=== PATIENT | male | born 1980 | race Caucasian/White ===

== ENCOUNTER → 2016-06-08 | Outpatient (CLI) | payer OTHER ==
--- NOTE | 2016-06-10 09:35 | SLEEPCENT ---
DATE OF STUDY: 06/08/2016 ORDERING PROVIDER: Lalita Toscano at the [facility] Nocturnal polysomnography was performed for evaluation of sleep physiology. 7 hours and 14 minutes of data were reviewed. There were 311 minutes of sleep identified. Sleep latency was quite prolonged at 71 minutes. Rapid eye movement (REM) latency was short at 49 minutes. Sleep architecture was fair with some fragmentation and brief periods of awake. 4-5 REM periods were appreciated. Overall sleep efficiency was 72%. The patient's electrocardiogram (EKG) showed a sinus rhythm with an average heart rate of 67 beats per minute. Heart rate ranged 50-80 beats per minute. Electroencephalogram (EEG) showed fairly normal waveforms awake and sleep. There were 39 respiratory events identified of 10 seconds in duration or greater for an apnea-hypopnea index at 7.5. The events were not exclusive to sleep stage. They were more frequent in the supine posture. Significant snoring was also noted. Respiratory-related arousals occurred 4.2 times per hour. No significant oxygen desaturations were seen. There was some limb activity, but limb movement arousal index was within reasonably normal range at 3.5. IMPRESSION: Mild positional obstructive sleep apnea syndrome (G47.33). Apnea-hypopnea index 7.5. RECOMMENDATION: Sleep position retraining for avoidance of the supine posture may be sufficient. If the patient's sleep symptoms persist, referral back to the sleep disorder center for pressure therapy would be reasonable. In the interim, alcohol and sedative avoidance should be practiced, as sleep agent sedatives may exaggerate the patient's apnea.
== END ==
LOC: M SLEEP 20:30
PROVIDERS: ATTEND Internal Medicine
DX: G47.33 Obstructive sleep apnea (adult) (pediatric) (principal)

== ENCOUNTER 2018-07-10 00:49 | Emergency (ER) | payer OTHER ==
[2018-07-10 01:05] VITALS: BP 140/82
== END 2018-07-10 01:34 | disposition home or self-care (01) ==
LOC: M ED 00:49
DX: F41.1 Generalized anxiety disorder (principal); F43.10 Post-traumatic stress disorder, unspecified; F17.200 Nicotine dependence, unspecified, uncomplicated

== ENCOUNTER 2018-07-24 03:42 | Emergency (ER) | payer OTHER ==
[~2018-07-24] VITALS: Ht 175.3 cm; Wt 110.0 kg
[2018-07-24] MEDS ORDERED: WELLTAB38 PO (03:50)
[2018-07-24] MEDS ORDERED: ATIV1TAB10 PO (03:50)
[2018-07-24 04:11] LABS: BASO % 0.4 % (0.0-1.0); EOS # 0.3 10^3/uL (0.0-0.50); EOS % 3.1 % (0.0-3.0); HEMATOCRIT 48.3 % (42.0-52.0); HEMOGLOBIN 16.7 g/dl (13.5-17.5); LYMPH # 2.4 10^3/uL (1.5-4.5); LYMPH % 28.3 % (24.0-44.0); MEAN CORPUSCULAR HEMOGLOBIN 31.9 pg (27.0-33.0); MEAN CORPUSCULAR HGB CONC 34.6 g/dl (32.0-36.5); MEAN CORPUSCULAR VOLUME 92.2 fl (80.0-96.0); MONO # 0.5 10^3/uL (0.0-0.8); MONO % 6.4 % (0.0-5.0); NEUTROPHILS # 5.2 10^3/uL (1.8-7.7); NEUTROPHILS % 61.4 % (36.0-66.0); PLATELET COUNT, AUTOMATED 268 10^3/uL (150-450); RED BLOOD COUNT 5.24 10^6/uL (4.30-6.10); WHITE BLOOD COUNT 8.5 10^3/uL (4.0-10.0)
[2018-07-24 04:36] LABS: AMPHETAMINES LEVEL URINE NEGATIVE (NEGATIVE); BARBITURATES URINE NEGATIVE (NEGATIVE); BENZODIAZEPINES URINE NEGATIVE (NEGATIVE); CANNABINOIDS URINE NEGATIVE (NEGATIVE); COCAINE METABOLITE URINE NEGATIVE (NEGATIVE); METHADONE URINE NEGATIVE (NEGATIVE); OPIATES URINE NEGATIVE (NEGATIVE); PHENCYCLIDINE URINE NEGATIVE (NEGATIVE)
[2018-07-24 04:44] LABS: ACETAMINOPHEN LEVEL < 2.0 UG/ML (10.0-30.0); ALBUMIN 3.9 GM/DL (3.2-5.2); ALT/SGPT 42 U/L (12-78); BILIRUBIN,DIRECT 0.1 MG/DL (0.0-0.2); BILIRUBIN,TOTAL 0.3 MG/DL (0.2-1.0); BLOOD UREA NITROGEN 6 MG/DL (7-18); CALCIUM LEVEL 8.2 MG/DL (8.5-10.1); CARBON DIOXIDE LEVEL 30 MEQ/L (21-32); CHLORIDE LEVEL 110 MEQ/L (98-107); CPK CREATINE PHOSPHOKINASE 161 U/L (39-308); CREATININE FOR GFR 0.84 MG/DL (0.70-1.30); ETHYL ALCOHOL (ETHANOL) 0.232 % (0.000-0.010); GLOMERULAR FILTRATION RATE > 60.0 (>60); GLUCOSE, FASTING 92 MG/DL (70-100); POTASSIUM SERUM 3.9 MEQ/L (3.5-5.1); SODIUM LEVEL 144 MEQ/L (136-145); TOTAL PROTEIN 7.1 GM/DL (6.4-8.2)
--- NOTE | 2018-07-24 07:16 | ECGEPIP ---
[facility] - ED Test Date: 2018-07-24 Pat Name: DULCE BAI Department: Room: - Gender: Male Manager Front: : 1980 Requested By: GOLDIE Cano Order Number: [id number] Reading MD: Alphonso Dubose Measurements Intervals [place] Rate: 98 P: 39 [place]: 156 QRS: 12 QRSD: 93 T: 62 QT: 345 QTc: 442 Interpretive Statements SINUS RHYTHM NONSPECIFIC T-WAVE ABNORMALITY SIMILAR TO 05/11/15 Electronically Signed on 07-24-2018 7:16:29 EDT by Alphonso Dubose
[2018-07-24 14:01] VITALS: BP 160/92
== END 2018-07-24 14:02 | disposition home or self-care (01) ==
LOC: M ED 03:42
DX: F10.10 Alcohol abuse, uncomplicated (principal); T42.72XA Poisoning by unspecified antiepileptic and sedative-hypnotic drugs, intentional self-harm, initial encounter; X58.XXXA Exposure to other specified factors, initial encounter; Y92.89 Other specified places as the place of occurrence of the external cause; F41.1 Generalized anxiety disorder; F43.10 Post-traumatic stress disorder, unspecified; Z79.899 Other long term (current) drug therapy; F17.210 Nicotine dependence, cigarettes, uncomplicated
CPT/HCPCS: 36415; 80048; 80076; 80307; 82550; 84443; 85025; 93005; 93041; 94760; 99285; G0480

== ENCOUNTER 2018-08-16 05:29 | Emergency (ER) | payer OTHER ==
[~2018-08-16] VITALS: Ht 175.3 cm; Wt 101.4 kg
[~2018-08-16 05:29] MED LIST: ATIV1TAB10 PO; WELLTAB38 PO
[2018-08-16 06:59] LABS: HEMOGLOBIN 16.4 g/dl (13.5-17.5); MEAN CORPUSCULAR HEMOGLOBIN 31.3 pg (27.0-33.0); MEAN CORPUSCULAR HGB CONC 34.9 g/dl (32.0-36.5); MEAN CORPUSCULAR VOLUME 89.7 fl (80.0-96.0); PLATELET COUNT, AUTOMATED 289 10^3/uL (150-450); RED BLOOD COUNT 5.24 10^6/uL (4.30-6.10); WHITE BLOOD COUNT 8.6 10^3/uL (4.0-10.0)
[2018-08-16 07:21] LABS: AMPHETAMINES LEVEL URINE NEGATIVE (NEGATIVE); BARBITURATES URINE NEGATIVE (NEGATIVE); BENZODIAZEPINES URINE NEGATIVE (NEGATIVE); CANNABINOIDS URINE NEGATIVE (NEGATIVE); COCAINE METABOLITE URINE NEGATIVE (NEGATIVE); METHADONE URINE NEGATIVE (NEGATIVE); OPIATES URINE NEGATIVE (NEGATIVE); PHENCYCLIDINE URINE NEGATIVE (NEGATIVE)
[2018-08-16 07:34] LABS: ACETAMINOPHEN LEVEL < 2.0 UG/ML (10.0-30.0); ALBUMIN 3.9 GM/DL (3.2-5.2); ALT/SGPT 43 U/L (12-78); BILIRUBIN,DIRECT 0.1 MG/DL (0.0-0.2); BILIRUBIN,TOTAL 0.3 MG/DL (0.2-1.0); BLOOD UREA NITROGEN 8 MG/DL (7-18); CALCIUM LEVEL 8.4 MG/DL (8.5-10.1); CARBON DIOXIDE LEVEL 26 MEQ/L (21-32); CHLORIDE LEVEL 110 MEQ/L (98-107); CREATININE FOR GFR 0.84 MG/DL (0.70-1.30); ETHYL ALCOHOL (ETHANOL) 0.179 % (0.000-0.010); GLOMERULAR FILTRATION RATE > 60.0 (>60); GLUCOSE, FASTING 95 MG/DL (70-100); POTASSIUM SERUM 4.1 MEQ/L (3.5-5.1); SALICYLATE LEVEL 3.2 MG/DL (5.0-30.0); SODIUM LEVEL 144 MEQ/L (136-145); TOTAL PROTEIN 7.2 GM/DL (6.4-8.2)
[2018-08-16] MEDS ORDERED: NICOTINE 21MG/24HR 1 EA TRANSDERMAL TD ONE (08:00)
[2018-08-16 14:36] VITALS: BP 137/80
--- NOTE | 2018-08-16 15:13 | MHCRPDOC ---
[facility] Consultation Consultation DATE OF CONSULTATION: 08/16/18 Neville Menendez Male Date of : N/A Date of Service: 08/16/2018 Chief Complaint Presentation to ER for suicidal statement while intoxicated. History of Present Illness Patient, a 38-year-old man with a history of PTSD after serving a significant amount of time in the , presents in an intoxicated state with alcohol where he had reportedly stated some passive suicidal ideation after he had been allowed to become more sober. He redacted the ideation. He reported that he has no history of suicide behavior [facility]. He described that when he drinks he generally remembers various traumatic events and at times will endorse ideation, but he reported he had no intention of acting on it. Review Of Systems Depression: The patient denies any episodes of unprovoked depressed mood associated with neurovegetative symptoms lasting longer than 2 weeks with symptoms present nearly everyday. Anxiety: The patient denies any excessive worry associated with physical symptoms. They deny any experience of discreet panic in the past. Linnea: The patient denies any episodes of euphoria/dysphoria associated with decreased need for sleep, hedonism, talkatively or impulsivity lasting longer than 5 days. Psychotic: The patient denies any experiences of auditory or visual hallucinations. They deny any episodes of paranoia or delusional thinking in the past Trauma: Patient admits to criterion A trauma with nightmares, intrusive thoughts, and avoidance behavior with negative cognition about the future. Borderline: The patient screens negative for borderline personality at this junction. Past Psychiatric History Patient reports no history of psychiatric admissions and is currently seeing Shannan Powell at the [facility] and following with a therapist as well in local [place] area. He was recently starred on Wellbutrin 150 mg extended release daily and PRN ativan that has been fairly helpful for his PTSD roughly 1 month ago. Denies any history of suicide attempts. Patient denies any ownership of weapons or guns. Allergies Please see below. Family Psychiatric History The patient denies/is unaware any history of mental health history including addictions and suicide. Social History Patient lives in the current area alone with his dog at this time. 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 Substance Abuse History Patient reports significant alcohol use that has brought him to the ER in the past, but denies consistent use or withdrawal symptoms. Denies tobacco use or illicit drug use at this time. Medical History Patient has no significant past medical history. Mental Status Examination General: Well dressed with good hygiene Speech: Spontaneous and fluid Thought processes: Linear and logical MSK: Smooth and coordinated gait, no signs of tremors or involuntary orofacial movements Thought content: Future orientated Abstract reasoning, and computation: Intact Description of associations: Intact Description of abnormal or psychotic thoughts: Denies any suicidal or homicidal ideation. Denies any auditory or visual hallucinations. Does not appear to be responding to internal stimuli. Does not appear to be endorsing any bizarre or paranoid ideation. Judgment: fair Insight: fair Orientation: Alert and orientated 3 Cognition: Grossly normal Recent and remote memory: Intact Attention span and concentration: Intact Fund of knowledge: Adequate Mood: "okay" Affect: Euthymic with a full range Diagnoses PTSD, chronic. Alcohol use disorder, mild. Assessment and Plan Patient, a 38-year-old man with history significant for PTSD but no significant in-patient admissions or suicide attempts, presents in an intoxicated state initially where he had endorsed suicidal thoughts and had been brought to the ER for evaluation. After he had become sober, he reported that he had no intention of acting on any suicidal thoughts and did not regularly entertain them either. Patient at this time is at his baseline level of risk, which is judged by this provider to be low. In my clinical opinion, the patient at this time does not meet criteria for involuntary in-patient admission and the patient was offered in-patient admission under a voluntary status, of which he politely declined. Patient is cleared from a psychiatric perspective at this time to return to his outpatient providers with strong endorsement to engage [facility]. Recommend additional services at the local [facility] for group therapy and continued case management. Time Spent 45 minutes. Vital Signs Vital Signs Date Time Temp Pulse Resp B/P (MAP) Pulse Ox O2 Delivery O2 Flow Rate FiO2 08/16/18 14:36 97.0 90 20 137/80 (99) 97 Room Air Laboratory Data 24H Labs Laboratory Tests 2 08/16/18 06:16: Urine Amphetamines Screen NEGATIVE, Urine Benzodiazepines Screen NEGATIVE, Urine Opiates Screen NEGATIVE, Urine Methadone Screen NEGATIVE, Urine Barbiturates Screen NEGATIVE, Urine Phencyclidine Screen NEGATIVE, Urine Cocaine Metabolite Screen NEGATIVE, Urine Cannabinoids Screen NEGATIVE 08/16/18 06:35: Nucleated Red Blood Cells % (auto) 0.0, Anion Gap 8, Glomerular Filtration Rate > 60.0, Calcium Level 8.4L, Aspartate Amino Transf (AST/SGOT) 37, Alanine Aminotransferase (ALT/SGPT) 43, Alkaline Phosphatase 125H, Total Bilirubin 0.3, Direct Bilirubin 0.1, Total Protein 7.2, Albumin 3.9, Albumin/Globulin Ratio 1.18, Thyroid Stimulating Hormone (TSH) 4.040H, Salicylates Level 3.2L, Acetaminophen Level < 2.0L, Ethyl Alcohol Level 0.179H Home Medications Scheduled Bupropion HCl (Wellbutrin Xl) 150 Mg Tab.er.24h, 150 MG PO DAILY, (Reported) Scheduled PRN Lorazepam (Ativan) 0.5 Mg Tablet, 0.5 MG PO BIDP PRN for anxiety, (Reported) Allergies Coded Allergies: No Known Allergies (Verified Allergy, Unknown, 07/10/18) KAELYN MARSHALL DO Aug 16, 2018 15:13
== END 2018-08-16 14:46 | disposition home or self-care (01) ==
LOC: M ED 05:29
DX: F32.9 Major depressive disorder, single episode, unspecified (principal); F41.9 Anxiety disorder, unspecified; F43.10 Post-traumatic stress disorder, unspecified; F17.210 Nicotine dependence, cigarettes, uncomplicated; F12.90 Cannabis use, unspecified, uncomplicated; F10.10 Alcohol abuse, uncomplicated; Z79.899 Other long term (current) drug therapy
CPT/HCPCS: 36415; 80048; 80076; 80307; 84443; 85027; 99284; G0480

== ENCOUNTER 2018-08-21 07:06 | Emergency (ER) | payer OTHER ==
[~2018-08-21] VITALS: Ht 175.3 cm; Wt 105.0 kg
[2018-08-21] MEDS: NS 1,000 ML IV SCH ×2 (07:33→14:13)
[2018-08-21 07:43] LABS: HEMATOCRIT 49.9 % (42.0-52.0); MEAN CORPUSCULAR HEMOGLOBIN 31.9 pg (27.0-33.0); MEAN CORPUSCULAR HGB CONC 35.1 g/dl (32.0-36.5); MEAN CORPUSCULAR VOLUME 90.9 fl (80.0-96.0); PLATELET COUNT, AUTOMATED 253 10^3/uL (150-450); RED BLOOD COUNT 5.49 10^6/uL (4.30-6.10); WHITE BLOOD COUNT 6.9 10^3/uL (4.0-10.0)
[2018-08-21 07:52] LABS: HEMOGLOBIN 17.5 g/dl (13.5-17.5)
[2018-08-21 08:20] LABS: ALBUMIN 3.9 GM/DL (3.2-5.2); ALT/SGPT 43 U/L (12-78); BILIRUBIN,DIRECT < 0.1 MG/DL (0.0-0.2); BILIRUBIN,TOTAL 0.2 MG/DL (0.2-1.0); BLOOD UREA NITROGEN 10 MG/DL (7-18); CALCIUM LEVEL 8.2 MG/DL (8.5-10.1); CARBON DIOXIDE LEVEL 24 MEQ/L (21-32); CHLORIDE LEVEL 107 MEQ/L (98-107); CPK CREATINE PHOSPHOKINASE 372 U/L (39-308); CREATININE FOR GFR 0.81 MG/DL (0.70-1.30); ETHYL ALCOHOL (ETHANOL) 0.098 % (0.000-0.010); GLOMERULAR FILTRATION RATE > 60.0 (>60); GLUCOSE, FASTING 104 MG/DL (70-100); POTASSIUM SERUM 4.2 MEQ/L (3.5-5.1); SALICYLATE LEVEL 2.6 MG/DL (5.0-30.0); SODIUM LEVEL 141 MEQ/L (136-145); TOTAL PROTEIN 7.1 GM/DL (6.4-8.2)
[2018-08-21 08:22] LABS: ACETAMINOPHEN LEVEL < 2.0 UG/ML (10.0-30.0)
[2018-08-21 10:29] LABS: AMPHETAMINES LEVEL URINE NEGATIVE (NEGATIVE); BARBITURATES URINE NEGATIVE (NEGATIVE); BENZODIAZEPINES URINE NEGATIVE (NEGATIVE); CANNABINOIDS URINE NEGATIVE (NEGATIVE); COCAINE METABOLITE URINE NEGATIVE (NEGATIVE); METHADONE URINE NEGATIVE (NEGATIVE); OPIATES URINE NEGATIVE (NEGATIVE); PHENCYCLIDINE URINE NEGATIVE (NEGATIVE)
[2018-08-21] MEDS ORDERED: buPROPion **XL** TABLET 150MG (WELLBUTRIN XL) PO ONE (11:00)
--- NOTE | 2018-08-21 14:53 | ED PDOC ---
Provider Note Neville Menendez Male Date of : N/A Date of Service: 08/21/2018 History of Present Illness Patient, a 38-year-old man with a history of PTSD after serving a significant amount of time in the , presents in an intoxicated state with alcohol where he had reportedly stated some passive suicidal ideation after he had been allowed to become more sober. He redacted the ideation. He reported that he has no history of suicide behavior and follows with the [place] at this time. He described that when he drinks he generally remembers various traumatic events and at times will endorse ideation, but he reported he had no intention of acting on it. Interval History Please refer to my previous ER H&P from roughly seven days ago. The patient presented again today after reportedly taking more of his Ativan than he's been prescribed. He had called the [place] Crisis [facility] reportedly after saying that he was upset about the loss of his recent resource and his friend had given him the number. He described that he did not have any suicidal thoughts and that due to him taking more of his Ativan than he should have, that this concerned the [place] [facility]. He was subsequently brought in for evaluation. The patient describes that he was drinking again and taking his Ativan roughly seven tablets, not all at once but in sequential which appears to be consistent with him misusing. The patient states now that he is sobered up. He has no symptoms of depression. No concerning ideation. His friend was consulted for collateral information where she relayed that no suicidal ideation was relayed during the conversation with the Crisis Line and that he is generally at his baseline at this time. Vital Signs Reviewed. Mental Status Examination General: Well dressed with good hygiene Speech: Spontaneous and fluid Thought processes: Linear and logical MSK: Smooth and coordinated gait, no signs of tremors or involuntary orofacial movements Thought content: Future orientated Abstract reasoning, and computation: Intact Description of associations: Intact Description of abnormal or psychotic thoughts: Denies any suicidal or homicidal ideation. Denies any auditory or visual hallucinations. Does not appear to be responding to internal stimuli. Does not appear to be endorsing any bizarre or paranoid ideation. Judgment: fair Insight: fair Orientation: Alert and orientated 3 Cognition: Grossly normal Recent and remote memory: Intact Attention span and concentration: Intact Fund of knowledge: Adequate Mood: "okay" Affect: Euthymic with a full range Diagnoses Alcohol use disorder, mild. Assessment and Plan The patient, a 38 year old man with a history of severe alcohol problems who is prescribed Ativan, appears to have been misusing it. He has returned to his baseline state. He has been seen a week prior. He did not overdose on any medication per the patient and collateral information clarified that the patient could have been considerably concerning if he had mentioned his overuse of his Ativan. However, the patient in my clinical opinion, has returned to his baseline level of risk for self-harm. He is well connected to his outpatient team, although, it was recommended he cease his Ativan use as this is contraindicated in alcohol use and recommended AA resources. The patient does not meet inpatient criteria at this time and is not interested in a voluntary admission. Time Spent 15 mins Thursday KAELYN MARSHALL DO Aug 21, 2018 14:53
[2018-08-21 16:14] VITALS: BP 153/75
--- NOTE | 2018-08-23 16:36 | ECGEPIP ---
[facility] - ED Test Date: 2018-08-21 Pat Name: DULCE BAI Department: Room: - Gender: Male Immigration Case Manager: VANITA : 1980 Requested By: EMILY MARTINES Order Number: [id number] Reading MD: Sd Waters Measurements Intervals [place] Rate: 107 P: 46 [place]: 154 QRS: 31 QRSD: 92 T: 53 QT: 331 QTc: 442 Interpretive Statements SINUS TACHYCARDIA Electronically Signed on 08-23-2018 16:35:53 EDT by Sd Waters
== END 2018-08-21 16:18 | disposition home or self-care (01) ==
LOC: M ED 07:06 → EDBD 07:06 → M ED 16:18
DX: F10.129 Alcohol abuse with intoxication, unspecified (principal); T42.4X1A Poisoning by benzodiazepines, accidental (unintentional), initial encounter; R00.0 Tachycardia, unspecified; F32.9 Major depressive disorder, single episode, unspecified; F41.9 Anxiety disorder, unspecified; F43.10 Post-traumatic stress disorder, unspecified; Z72.0 Tobacco use; F12.10 Cannabis abuse, uncomplicated; Z79.899 Other long term (current) drug therapy; Z88.8 Allergy status to other drugs, medicaments and biological substances
CPT/HCPCS: 80048; 80076; 80307; 82550; 84443; 85027; 93005; 93041; 94760; 96360; 96361; 99285; G0480

== ENCOUNTER 2021-02-22 21:59 | Emergency (ER) | payer OTHER ==
[~2021-02-22] VITALS: Ht 170.2 cm; Wt 118.2 kg
[2021-02-23 01:44] LABS: BASO % 0.5 % (0.0-1.0); EOS # 0.4 10^3/uL (0.0-0.5); EOS % 4.2 % (0.0-3.0); HEMATOCRIT 49.9 % (42.0-52.0); LYMPH # 2.4 10^3/uL (1.5-5.0); MEAN CORPUSCULAR HEMOGLOBIN 30.7 pg (27.0-33.0); MEAN CORPUSCULAR HGB CONC 34.1 g/dl (32.0-36.5); MEAN CORPUSCULAR VOLUME 90.1 fl (80.0-96.0); MONO # 0.5 10^3/uL (0.0-0.8); MONO % 5.9 % (2.0-8.0); PLATELET COUNT, AUTOMATED 320 10^3/uL (150-450); RED BLOOD COUNT 5.54 10^6/uL (4.30-6.10); WHITE BLOOD COUNT 8.4 10^3/uL (4.0-10.0)
[2021-02-23 02:00] LABS: ALBUMIN 3.7 GM/DL (3.2-5.2); ALT/SGPT 45 U/L (12-78); BILIRUBIN,TOTAL 0.2 MG/DL (0.2-1.0); BLOOD UREA NITROGEN 17 MG/DL (7-18); CARBON DIOXIDE LEVEL 26 MEQ/L (21-32); CHLORIDE LEVEL 110 MEQ/L (98-107); CREATININE FOR GFR 0.97 MG/DL (0.70-1.30); GLOMERULAR FILTRATION RATE > 60.0 (>60); GLUCOSE, FASTING 102 MG/DL (70-100); SODIUM LEVEL 141 MEQ/L (136-145); TOTAL PROTEIN 7.4 GM/DL (6.4-8.2)
[2021-02-23 07:35] VITALS: BP 187/103
== END 2021-02-23 08:11 | disposition home or self-care (01) ==
LOC: M ED 21:59
DX: I83.91 Asymptomatic varicose veins of right lower extremity (principal); F17.200 Nicotine dependence, unspecified, uncomplicated; Z79.899 Other long term (current) drug therapy; Z88.8 Allergy status to other drugs, medicaments and biological substances

== ENCOUNTER 2021-02-25 11:16 | Emergency (ER) | payer OTHER ==
[~2021-02-25] VITALS: Ht 175.3 cm; Wt 118.2 kg
[2021-02-25 12:17] LABS: BASO % 0.5 % (0.0-1.0); EOS # 0.3 10^3/uL (0.0-0.5); HEMATOCRIT 46.3 % (42.0-52.0); HEMOGLOBIN 15.6 g/dl (13.5-17.5); LYMPH # 1.6 10^3/uL (1.5-5.0); LYMPH % 20.9 % (24.0-44.0); MEAN CORPUSCULAR HEMOGLOBIN 30.5 pg (27.0-33.0); MEAN CORPUSCULAR HGB CONC 33.7 g/dl (32.0-36.5); MEAN CORPUSCULAR VOLUME 90.4 fl (80.0-96.0); MONO # 0.5 10^3/uL (0.0-0.8); MONO % 6.1 % (2.0-8.0); NEUTROPHILS # 5.1 10^3/uL (1.5-8.5); PLATELET COUNT, AUTOMATED 289 10^3/uL (150-450); RED BLOOD COUNT 5.12 10^6/uL (4.30-6.10); WHITE BLOOD COUNT 7.4 10^3/uL (4.0-10.0)
[2021-02-25 12:51] LABS: ALBUMIN 3.7 GM/DL (3.2-5.2); ALT/SGPT 42 U/L (12-78); BILIRUBIN,TOTAL 0.2 MG/DL (0.2-1.0); BLOOD UREA NITROGEN 11 MG/DL (7-18); CALCIUM LEVEL 9.3 MG/DL (8.5-10.1); CARBON DIOXIDE LEVEL 28 MEQ/L (21-32); CHLORIDE LEVEL 108 MEQ/L (98-107); CREATININE FOR GFR 0.82 MG/DL (0.70-1.30); GLOMERULAR FILTRATION RATE > 60.0 (>60); GLUCOSE, FASTING 95 MG/DL (70-100); POTASSIUM SERUM 4.5 MEQ/L (3.5-5.1); SODIUM LEVEL 140 MEQ/L (136-145)
[2021-02-25] MEDS ORDERED: LISI20TA33 PO (13:07)
[2021-02-25 13:21] VITALS: BP 180/100
== END 2021-02-25 13:22 | disposition home or self-care (01) ==
LOC: M ED 11:16
DX: I10 Essential (primary) hypertension (principal); E66.9 Obesity, unspecified; F41.9 Anxiety disorder, unspecified; F32.9 Major depressive disorder, single episode, unspecified; F43.10 Post-traumatic stress disorder, unspecified; F17.200 Nicotine dependence, unspecified, uncomplicated; Z79.899 Other long term (current) drug therapy; Z88.8 Allergy status to other drugs, medicaments and biological substances

== ENCOUNTER 2024-03-21 00:16 | Emergency (ER) | payer OTHER ==
[~2024-03-21 00:16] MED LIST changes: +LISI20TA33 PO
[2024-03-21] MEDS ORDERED: ISOVUE-370 76% 100ML VIAL As Ordered ONE (01:49)
[2024-03-21 02:13] LABS: BASO % 0.3 % (0.0-1.0); EOS # 0.4 10^3/uL (0.0-0.5); EOS % 3.8 % (0.0-3.0); HEMATOCRIT 43.3 % (42.0-52.0); HEMOGLOBIN 14.9 g/dl (13.5-17.5); LYMPH # 2.2 10^3/uL (1.5-5.0); LYMPH % 20.2 % (24.0-44.0); MEAN CORPUSCULAR HGB CONC 34.4 g/dl (32.0-36.5); MEAN CORPUSCULAR VOLUME 90.2 fl (80.0-96.0); MONO # 0.8 10^3/uL (0.0-0.8); MONO % 7.3 % (2.0-8.0); NEUTROPHILS # 7.5 10^3/uL (1.5-8.5); NEUTROPHILS % 67.9 % (36.0-66.0); PLATELET COUNT, AUTOMATED 336 10^3/uL (150-450)
[2024-03-21] MEDS: METOCLOPRAMIDE INJ 10MG/2ML VIAL IV ONE (02:17)
[2024-03-21] MEDS: MORPHINE 4 MG/ML 1ML VIAL IV PRN (02:18)
[2024-03-21 02:31] LABS: INR 0.94; PARTIAL THROMBOPLASTIN TIME 30.7 SECONDS (24.8-34.2); PROTHROMBIN TIME 12.9 SECONDS (12.5-14.5)
[2024-03-21 03:28] LABS: BLOOD UREA NITROGEN 14 MG/DL (9-23); CALCIUM LEVEL 8.8 MG/DL (8.5-10.1); CARBON DIOXIDE LEVEL 29 MMOL/L (20-31); CHLORIDE LEVEL 101 MMOL/L (98-107); CREATININE FOR GFR 0.73 MG/DL (0.70-1.30); GLOMERULAR FILTRATION RATE > 60.0 (>60); GLUCOSE, FASTING 104 MG/DL (60-100); SODIUM LEVEL 138 MMOL/L (136-145)
[2024-03-21 05:15] VITALS: BP 135/82; TEMP 97.6; O2SAT 96
== END 2024-03-21 05:58 | disposition home or self-care (01) ==
LOC: M ED 00:16
DX: G43.909 Migraine, unspecified, not intractable, without status migrainosus (principal); I10 Essential (primary) hypertension; F17.200 Nicotine dependence, unspecified, uncomplicated; F14.10 Cocaine abuse, uncomplicated; Z79.899 Other long term (current) drug therapy; Z88.8 Allergy status to other drugs, medicaments and biological substances
CPT/HCPCS: 70450; 70496; 70498; 71045; 80047; 80048; 85025; 85610; 85730; 93005; 93041; 94760; 96374; 96375; 99285; J2765; Q9967